=== PATIENT | female | born 1985 | race Caucasian/White ===

== ENCOUNTER 2021-07-12 16:17 | Emergency (ER) | payer MEDICAID ==
[~2021-07-12] VITALS: Ht 154.9 cm; Wt 40.0 kg
[2021-07-12 16:25] VITALS: BP 157/106
== END 2021-07-12 18:12 | disposition left against medical advice (07) ==
LOC: ER 16:17
DX: M79.672 Pain in left foot (principal); Z20.2 Contact with and (suspected) exposure to infections with a predominantly sexual mode of transmission; Z87.81 Personal history of (healed) traumatic fracture
CPT/HCPCS: 99281